=== PATIENT | male | born 1950 | race Caucasian/White ===

== ENCOUNTER 2016-07-22 09:36 | Day surgery (SDC) | payer MEDICARE, OTHER ==
[~2016-07-22] VITALS: Ht 182.9 cm; Wt 97.1 kg
--- NOTE | 2016-07-22 07:09 | PCM.HPANE ---
Patient Data Surgeon Admitting Provider: Attending Provider:Maryellen Burnette MD Primary Care Physician:Yina Gross Other Provider:Trina Pleitez Anesthesia Reason for Visit Benign Neoplasm Of Colon Ht/WT & BMI Body Mass Index Allergies Coded Allergies: Penicillins (Verified Allergy, Unknown, 07/21/16) Medications Reported Medications Sildenafil Citrate (Viagra)100 Mg Piykof211 Mg PO UD PRN erectile dysf Ref 0 07/21/16 Sertraline HCl (Sertraline)100 Mg Bubsti487 Mg PO DAILY 30 Days Ref 0 07/21/16 Metronidazole (Metronidazole Gel)1 Applic/0.25 Gm Gel1 Applic TOP BID #45 GM Ref 0 07/21/16 Hydrochlorothiazide 25 Mg Qwrhst13 Mg PO DAILY 30 Days Ref 0 07/21/16 Flunisolide 25 Ml Spray25 Ml NS 07/21/16 Etodolac 400 Mg Wacteb673 Mg PO 07/21/16 Aspirin 81 Mg Ogdise20 Mg PO DAILY Ref 0 07/21/16 Stop/Bang Risk Assessment Category Category 1A: Patient has history of documented sleep apnea, and HAS NOT received any narcotic, sedative or anesthesia administration during this stay. Category 1B: Patient has history of documented sleep apnea, and HAS received any narcotic , sedative or anesthesia administration during this stay Category 2: Patient has SUSPECTED Obstructive Sleep Apnea, and HAS received any narcotic , sedative or anesthesia administration during this stay. Category 3: Patient has SUSPECTED Obstructive Sleep Apnea and HAS NOT received narcotic, sedative or anesthesia administration during this stay. Category 4: Outpatient in Procedural Areas with known sleep apnea or who screen positive for High Risk via the STOP/BANG questionnaire. Exam Exam General Appearance: Alert, Oriented X3, Cooperative, No Acute Distress HEENT/AIRWAY: MP 2 Lungs: Clear to Auscultation, Normal Air Movement Heart: Exam Unremarkable, Regular Rate/Rhythm, No Murmurs/Rubs/Gallops Plan Impression Patient chart reviewed, patient interviewed and anesthestic plan with risks, benefits, and alternatives discussed, and informed consent obtained. ASA Physical Status: ASA2 Mod Systemic Disease Anesthetic Plan: MAC Bene/Risks/Altern/Consents: Yes HP Complete Prior to Induction: Yes Terese Jacinto MD Jul 22, 2016 07:09
[~2016-07-22 09:36] MED LIST: ASPI-973 PO; ETOD400T PO; FLUN25SP NS; HYDR25TA4 PO; Lactated Ringer's 1,000 ML IV ONE; METR45GE TOP; SERT100T9 PO; SILD100T PO
[2016-07-22] MEDS ORDERED: Propofol 10,000 mCg/mL 20 mL Inj ONE (09:37)
[2016-07-22] MEDS ORDERED: fentaNYL-PF 50 mCg/mL 2 mL Inj ONE (09:37)
[2016-07-22 11:18] VITALS: BP 133/87; PULSE 71; RESP 17; O2SAT 100
[2016-07-22] MEDS ORDERED: Lactated Ringer's 1,000 ML IV SCH (12:11)
--- NOTE | 2016-07-22 12:12 | PCM.ANEP1 ---
Post Anesthesia Phase 1 PACU Phase 1 Assessment Vital Signs Vital Signs Date Time Temp Pulse Resp B/P Pulse Ox O2 Delivery O2 Flow Rate FiO2 07/22/16 11:18 71 17 133/87 100 Room Air Anesthetic Administered: MAC Level of Alertness: Awake, talking MONAHAN's with Equal Strength: Yes Pain: No Nausea or Vomiting: No Oxygen Delivery: Nasal Cannula Lungs: Clear to Auscultation, Normal Air Movement Terese Jacinto MD Jul 22, 2016 12:12
[2016-07-22] MEDS ORDERED: MetoCLOpramide 5 mg/mL 2 mL Inj IVPUSH PRN (12:15)
[2016-07-22] MEDS ORDERED: Ondansetron 2 mg/mL 2 mL Inj IVPUSH PRN (12:15)
[2016-07-22 12:16] VITALS: BP 112/73; PULSE 52; RESP 16; O2SAT 96
[2016-07-22 12:29] VITALS: BP 114/69; PULSE 67; RESP 16; O2SAT 98
--- NOTE | 2016-07-22 13:02 | PCM.ANEP2 ---
Post Anesthesia Evaluation ASA/CMS Post Anesthesia VS in Patient's Normal Range?: Yes Resp Stable; Airway Patent?: Yes CV Function & Hydration Stable: Yes Mental Status Recovered?: Yes Pain control Satisfactory?: Yes N/V Control Satisfactory?: Yes Terese Jacinto MD Jul 22, 2016 13:02
--- NOTE | 2016-07-22 14:21 | ENDO ---
[address] [address] ENDOSCOPY PROCEDURE PATIENT: AKILAH CASTAÑEDA : 1950 MR#: [id number] ADMIT: 07/22/2016 JOB ID: [id number] DATE: 07/22/2016 PROCEDURE: Colonoscopy. INDICATIONS: Patient with a history of colon polyps. Patient's ASA classification, Mallampati score, and medications as per anesthesia note. INSTRUMENT USED: [id number]-[id number]. PREP QUALITY: Fair. PROCEDURE DETAILS: After informed consent was obtained, the patient was brought into the GI suite and placed on oxygen via nasal cannula and monitored with continuous pulse oximeter, telemetry, and blood pressure monitoring. A time-out was performed. Then, he was placed in a left lateral decubitus position and medications were administered for sedation. Digital rectal exam was performed, which was limited secondary to patient's body habitus. The colonoscope was then inserted into the rectum and advanced under direct visualization to the cecum, which was identified by the presence of the ileocecal valve and appendiceal orifice. Once the cecum was reached, the colonoscope was then withdrawn back into the rectum as the mucosa and lumen were examined. In the rectum, retroflexion was performed. Following retroflexion, remaining air in the rectum was suctioned, and procedure was completed. FINDINGS: 1. In the ascending colon, there were two polyps ranging in size from diminutive to approximately 4 mm. The diminutive polyp was removed with cold biopsy forceps, and the larger polyp was removed with a cold snare. 2. In the transverse colon, there was a diminutive polyp that was removed with cold biopsy forceps. 3. In the descending colon, there was a diminutive polyp that was removed with cold biopsy forceps. 4. In the sigmoid colon, there was a diminutive polyp that was removed with cold biopsy forceps. 5. Scattered diverticula were seen throughout the left side of the colon. IMPRESSION: 1. Two ascending colon polyps. 2. Transverse colon polyp. 3. Descending polyp. 4. Sigmoid polyp. 5. Left-sided diverticulosis. RECOMMENDATIONS: 1. Await polyp pathology results. 2. Fiber-rich diet. 3. Follow up in GI clinic. COMPLICATIONS: None. ESTIMATED BLOOD LOSS: Less than 5 mL.
--- NOTE | 2016-07-23 15:42 | PATH ---
SURGICAL PATHOLOGY Attending Physician:Pauly Fuentes CASE STATUS: Signed Out PATIENT NAME: AKILAH CASTAÑEDA PID: [id number] : 1950 DATE COLLECTED:07/22/2016 19:51 SPECIMEN: 1: Colon, Biopsy 2: Colon, Biopsy 3: Colon, Biopsy 4: Colon, Biopsy CLINICAL HISTORY: COLON POLYPS 1). ASCENDING COLON POLYPS X2 2). TRANSVERSE COLON POLYP X1 3). DESCENDING COLON POLYP X1 4). SIGMOID COLON POLYP X1 FINAL DIAGNOSIS: 1. Ascending Colon Polyps x2: Benign colonic mucosa with intramucosal lymphoid aggregates. Negative for dysplasia and malignancy. 2. Transverse Colon Polyp x1: Benign colonic mucosa with intramucosal lymphoid aggregate. Negative for dysplasia and malignancy. 3. Descending Colon Polyp x1; Benign colonic mucosa with intramucosal lymphoid aggregate. Negative for dysplasia and malignancy. 4. Sigmoid Colon Polyp x1: Hyperplastic polyp. ICD10 K63.5 GROSS DESCRIPTION: The specimen is received in four formalin filled containers labeled with the patient's name. 1). The specimen is sublabeled "ascending colon polyps" and consists of 2 portions of tissue which aggregate to 0.5 x 0.3 x 0.2 CM. The specimen is entirely submitted in cassette 1A. 2). The specimen is sublabeled "transverse colon polyp" and consists of 4 tiny portions of tissue which aggregate to 0.3 x 0.3 x 0.2 CM. The specimen is entirely submitted in cassette 2A. 3). The specimen is sublabeled "descending colon polyp" and consists of a 0.2 x 0.1 x 0.1 CM portion of tissue which is entirely submitted in cassette 3A. 4). The specimen is sublabeled "sigmoid colon polyp" and consists of 2 portions of tissue which aggregate to 0.2 x 0.2 x 0.2 CM. The specimen is entirely submitted in cassette 4A. 07/22/2016 DAC MICRO DESCRIPTION: Please see diagnosis. ICD-9 CODES: CPT CODES: 1: 82915 2: 33455 3: 11518 4: 95765 Electronically Signed Out Karlene Solis MD [facility] [place] [address] Technical component performed at [facility], [facility] [address], [address]
== END 2016-07-22 23:59 | disposition home or self-care (01) ==
LOC: END 09:36
PROVIDERS: ATTEND Internal Medicine Gastroenterology
DX: Z12.11 Encounter for screening for malignant neoplasm of colon (principal); K63.5 Polyp of colon; K57.30 Diverticulosis of large intestine without perforation or abscess without bleeding; Z86.010 Personal history of colon polyps; I10 Essential (primary) hypertension; E78.5 Hyperlipidemia, unspecified; F32.9 Major depressive disorder, single episode, unspecified; M54.9 Dorsalgia, unspecified; J30.9 Allergic rhinitis, unspecified; M54.16 Radiculopathy, lumbar region; Z79.82 Long term (current) use of aspirin
CPT/HCPCS: 45380; 45385; 88305; J2250; J3010; J7120